=== PATIENT | male | born 1940 | race Caucasian/White ===

== ENCOUNTER 2016-11-28 12:35 | Inpatient (IN) | payer BC, MEDICARE ==
--- NOTE | 2016-11-28 12:56 | ER Document Report ---
ED Medical Screen (RME) - General Chief Complaint: Nausea Stated Complaint: NAUSEA/POSSIBLE PRESSURE ULCER Notes: 76-year-old male patient with diabetes, atrial fibrillation and pacemaker, hypertension. He reports he has been feeling poorly for several days. Family reports she has been having diarrhea for a week frequently in his sleep. He had an INR done yesterday and it was 6, digoxin started 4 weeks ago and on 11/10/2016 that was normal. He went to the office today complaining of discomfort from a bedsore and while there reported pain in throat and nausea so he was sent to the emergency room. Family reports of the office today his rate was controlled for the first time in quite a while since starting the digoxin. There was still a paced rate. I have greeted and performed a rapid initial assessment of this patient. A comprehensive ED assessment and evaluation of the patient, analysis of test results and completion of the medical decision making process will be conducted by additional ED providers. TRAVEL OUTSIDE OF THE [place] IN LAST 30 DAYS: No - Related Data Allergies/Adverse Reactions: iodine [Iodine] Adverse Reaction (Verified 11/28/16 12:43) NAUSEA, VOMITING terazosin HCl [From Hytrin] Adverse Reaction (Verified 11/28/16 12:43) HEART ISSUES (A-FIB) Past Medical History - Past Medical History Cardiac Medical History: Reports: Hx Atrial Fibrillation, Hx Hypertension - AMIORARONE, LETNSIN, HYDRODIURIL, EXFORGE, Denies: Hx Heart Attack Pulmonary Medical History: Denies: Hx Asthma Neurological Medical History: Denies: Hx Cerebrovascular Accident, Hx Seizures Renal/ Medical History: Denies: Hx Peritoneal Dialysis GI Medical History: Reports: Hx Ulcer - STOMACH D/T MED. Denies: Hx Hepatitis, Hx Hiatal Hernia Infectious Medical History: Denies: Hx Hepatitis Past Surgical History: Reports: Hx Bowel Surgery, Hx Pacemaker - CHECKLIST INITIATED, PACEMAKER CHANGED MAR 2011. Denies: Hx Open Heart Surgery Physical Exam - Vital signs Vitals: Temp Pulse Resp BP Pulse Ox 97.5 F 70 13 106/62 94 11/28/16 12:42 11/28/16 12:42 11/28/16 12:42 11/28/16 12:42 11/28/16 12:42 Course - Vital Signs Vital signs: Temp Pulse Resp BP Pulse Ox 97.5 F 70 13 106/62 94 11/28/16 12:42 11/28/16 12:42 11/28/16 12:42 11/28/16 12:42 11/28/16 12:42
[2016-11-28 13:34] LABS: ABSOLUTE EOSINOPHILS # (AUTO) 0.1 10^3/uL (0.0-0.6); ABSOLUTE LYMPHOCYTES (AUTO) 1.1 10^3/uL (0.5-4.7); ABSOLUTE MONOCYTES (AUTO) 0.7 10^3/uL (0.1-1.4); ABSOLUTE NEUT (AUTO) 7.5 10^3/uL (1.7-8.2); BASOPHILS % (AUTO) 0.2 % (0-2); EOSINOPHILS % (AUTO) 1.3 % (0-6); HEMATOCRIT 45.2 % (37.9-51.0); HEMOGLOBIN 15.4 g/dL (13.5-17.0); MEAN CORPUSCULAR HEMOGLOBIN 31.4 pg (27.0-33.4); MEAN CORPUSCULAR VOLUME 92 fl (80-97); MONOCYTES % (AUTO) 7.3 % (3-13); RED CELL DISTRIBUTION WIDTH 15.5 % (11.5-14.0); SEGMENTED NEUTROPHILS % (AUTO) 79.2 % (42-78); WHITE BLOOD COUNT 9.5 10^3/uL (4.0-10.5)
--- NOTE | 2016-11-28 13:55 | ER Document Report ---
ED GI/ <KRISTEN SHAFFER - Last Filed: 11/28/16 14:46> - General Mode of Arrival: Wheelchair Information source: Patient, Relative TRAVEL OUTSIDE OF THE [place] IN LAST 30 DAYS: No - HPI Patient complains to provider of: Other - nausea Associated symptoms: Other - See above <FABRICIOBUCKESTEFANÍA - Last Filed: 11/28/16 14:51> - General Chief Complaint: Nausea Stated Complaint: NAUSEA Notes: Patient is a 76 year old male, with a past medical history including A-fib and DM, who presents to the emergency department with his son and daughter in law complaining of nausea. Per daughter in law, patient had diarrhea during the weekend but became constipated a few days ago, patient was not urinating during the weekend but he has started urinating again, only small amounts and very dark in color. Daughter in law also states patient has a bed sore that developed 2 weeks ago. Patient recently had an INR done, reported at 6, and was told to stop his coumadin, patient developed a nose bleed yesterday. Family also states patient has lost a considerable amount of weight recently, dropped from 270lb to 212lb. Patient complains of vomiting, nausea, and sore throat onset today. 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 Per family, patient had acute kidney failure in the past but since then they have been normal. PCP: Dr. Kothari (ESTEFANÍA REGALADO) - Related Data Allergies/Adverse Reactions: iodine [Iodine] Adverse Reaction (Verified 11/28/16 12:43) NAUSEA, VOMITING terazosin HCl [From Hytrin] Adverse Reaction (Verified 11/28/16 12:43) HEART ISSUES (A-FIB) Past Medical History - General Information source: Patient, Relative - Social History Smoking Status: Unknown if Ever Smoked Family History: Reviewed & Not Pertinent Patient has suicidal ideation: No Patient has homicidal ideation: No - Past Medical History Cardiac Medical History: Reports: Hx Atrial Fibrillation, Hx Hypertension - AMIORARONE, LETNSIN, HYDRODIURIL, EXFORGE, Endocrine Medical History: Reports: Hx Diabetes Mellitus Type 2 GI Medical History: Reports: Hx Ulcer - STOMACH D/T MED Past Surgical History: Reports: Hx Bowel Surgery, Hx Orthopedic Surgery - Hx ATK left, Hx Pacemaker - CHECKLIST INITIATED, PACEMAKER CHANGED MAR 2011 <ESTEFANÍA REGALADO - Last Filed: 11/28/16 14:51> Review of Systems - Review of Systems Constitutional: No symptoms reported EENT: See HPI, Throat pain Cardiovascular: No symptoms reported Respiratory: No symptoms reported Gastrointestinal: See HPI, Diarrhea, Nausea, Vomiting, Constipation, Poor appetite Genitourinary: See HPI, Retention Male Genitourinary: No symptoms reported Musculoskeletal: No symptoms reported Skin: No symptoms reported Hematologic/Lymphatic: No symptoms reported Neurological/Psychological: No symptoms reported -: Yes All other systems reviewed and negative <REGALADOESTEFANÍA - Last Filed: 11/28/16 14:51> Physical Exam <KRISTEN SHAFFER - Last Filed: 11/28/16 14:46> <ESTEFANÍA REGALADO - Last Filed: 11/28/16 14:51> - Vital signs Vitals: Temp Pulse Resp BP Pulse Ox 97.5 F 70 13 106/62 94 11/28/16 12:42 11/28/16 12:42 11/28/16 12:42 11/28/16 12:42 11/28/16 12:42 - Notes Notes: GENERAL: VS as per nursing doc. chronically ill-appearing and in no acute distress. HEAD: Atraumatic, normocephalic. EYES: Pupils equal round and reactive to light, extraocular movements intact, sclera anicteric, no conjunctival injection or discharge. ENT: Nares patent, oropharynx clear without exudates, very dry mucous membranes. NECK: Normal range of motion, supple without lymphadenopathy. LUNGS: Breath sounds clear to auscultation bilaterally and equal with fine basilar crackles. HEART: Regular rate and rhythm without murmurs. ABDOMEN: Soft, non-tender. No guarding, no rebound. No masses appreciated. No [place] sign. BACK: No CVA tenderness. EXTREMITIES: Left BKA noted. No signs of infection at stump Normal range of motion, no calf tenderness, no edema. NEUROLOGICAL: Cranial nerves grossly intact. Normal speech. Normal sensory and motor exams. No gross cerebellar abnormalities. PSYCH: Normal mood, normal affect. Slow recall. SKIN: Warm, dry, right pretibial abrasion noted. (KRISTEN SHAFFER) Course - Laboratory Result Diagrams: 11/28/16 13:20 11/28/16 13:10 - EKG Interpretation by Me Rate: Normal - Rate is 70 with wide complex QRS and 2 paced AV pacemaker dependent. Compared to prior EKG there is bounding and elevation of the ST segments <KRISTEN SHAFFER - Last Filed: 11/28/16 14:46> - Laboratory Result Diagrams: 11/28/16 13:20 11/28/16 13:10 - Consults Dr. De Santiago Time consulted: 14:43 <ESTEFANÍA REGALADO - Last Filed: 11/28/16 14:51> - Re-evaluation Re-evalutation: 11/28/16 14:24 Patient is dig toxic. Urine is pending at this point. He appears to have an acute kidney injury as well with his April 2016 creatinine 1.19 now his GFR is 47 and creatinine 1.76. (KRISTEN SHAFFER) - Vital Signs Vital signs: Temp Pulse Resp BP Pulse Ox 97.5 F 70 13 106/62 94 11/28/16 12:42 11/28/16 12:42 11/28/16 12:42 11/28/16 12:42 11/28/16 12:42 - Laboratory Laboratory results interpreted by me: 11/28/16 11/28/16 11/28/16 13:10 13:10 13:20 RDW 15.5 H Seg Neutrophils % 79.2 H Lymphocytes % 12.0 L PT 58.2 H* INR 6.21 H* Chloride 97 L BUN 47 H Creatinine 1.76 H Est GFR ( Amer) 46 L Est GFR (Non-Af Amer) 38 L Glucose 139 H AST 103 H Alkaline Phosphatase 194 H Albumin 3.2 L Digoxin 2.77 H* - Consults Dr. De Santiago Reason for consultation: 11/28/16 14:43 Dr. De Santiago agrees to admit the patient (ESTEFANÍA REGALADO) Discharge - Discharge Admitting Provider: Hospitalist - Dr. De Santiago Unit Admitted: Telemetry <KRISTEN SHAFFER - Last Filed: 11/28/16 14:46> <ESTEFANÍA REGALADO - Last Filed: 11/28/16 14:51> - Discharge Clinical Impression: Digoxin toxicity, Coumadin toxicity Condition: Fair Scribe Documentation - Scribe Written by Scribe:: roselia Gan, 11/28/16, 1413 acting as scribe for :: Keyonna <ESTEFANÍA REGALADO - Last Filed: 11/28/16 14:51>
[2016-11-28 13:57] LABS: ALANINE AMINOTRANSFERASE 54 U/L (21-72); ALBUMIN 3.2 g/dL (3.5-5.0); ALKALINE PHOSPHATASE 194 U/L (38-126); ANION GAP 12 (5-19); ASPARTATE AMINO TRANSFERASE 103 U/L (17-59); BILIRUBIN,DIRECT 0.3 mg/dL (0.0-0.4); BILIRUBIN,TOTAL 0.9 mg/dL (0.2-1.3); BLOOD UREA NITROGEN 47 mg/dL (7-20); CALCIUM 9.4 mg/dL (8.4-10.2); CARBON DIOXIDE 30 mmol/L (22-30); CHLORIDE 97 mmol/L (98-107); CREATININE RESULT 1.76 mg/dL (0.52-1.25); GLUCOSE 139 mg/dL (75-110); MAGNESIUM 1.7 mg/dL (1.6-2.3); POTASSIUM 4.7 mmol/L (3.6-5.0); SODIUM 139.2 mmol/L (137-145); TOTAL PROTEIN 7.4 g/dL (6.3-8.2)
[2016-11-28 14:12] LABS: DIGOXIN 2.77 ng/mL (0.8-2.0)
[2016-11-28] MEDS ORDERED: DIGOXIN IMMUNE FAB 40 MG IV ONE (14:29)
[2016-11-28 14:34] LABS: PROTHROMBIN TIME 58.2 SEC (11.4-15.4)
[2016-11-28] MEDS ORDERED: ACETAMINOPHEN 325 MG TABLET PO PRN (16:11)
[2016-11-28] MEDS ORDERED: ONDANSETRON HCL INJ/PF 4 MG/2 ML SDV IV PRN (16:20)
[2016-11-28] MEDS ORDERED: GLUCAGON,HUMAN RECOMB 1 MG INJ IM PRN (16:23)
[2016-11-28] MEDS ORDERED: DEXTROSE 40% GEL 15 GM TUBE PO PRN ×2 (16:23)
[2016-11-28] MEDS ORDERED: DEXTROSE 50%-WATER 25 GM/50 ML DISP.SYRIN IV PRN ×2 (16:23)
[2016-11-28 17:25] LABS: THYROID STIMULATING HORMONE 0.47 uIU/mL (0.47-4.68)
--- NOTE | 2016-11-28 17:35 | PDOC H&P ---
History of Present Illness Admission Date/PCP: 11/28/16 16:19 MARION HAAS MD Patient complains of: Diarrhea History of Present Illness: HOANG HUMPHREYS is a 76 year old male, with multiple medical problems including diabetes, atrial fibrillation, coronary artery disease, hypertension, peripheral vascular disease, brought to the emergency room because of confusion and decreased oral intake for the past 2 weeks. The patient underwent amputation of the lower extremity on September of this year. Went to rehabilitation for about a month without significant improvement therefore was discharged home with physical therapy. The patient was discharged from physical therapy as there is no progress as well in terms of ambulation. Patient reportedly on 24-hour care according to the family. His lives with his son. He is unable to get out of bed and transfer to the wheelchair. He has a decubitus ulcer on his buttocks that reportedly started to increase in size. For the past 2 weeks his appetite has dropped. He started to become confused as well. Patient just recently completed antibiotic therapy for a urinary tract infection with cephalexin. He started to develop diarrhea about a week ago but not in large volume. He had prior constipation according to the family. He has not however complain of any problems specifically. Imodium was given to the patient, which will only relieved the symptom partially but the diarrhea persisted. He started to develop some nausea with episode of vomiting. He was brought to the hospital for evaluation, in the emergency room he was found to have an elevated digoxin level, as well as creatinine, and PT/ INR. Patient was given Digibind, and was referred for admission. EKG shows intraventricular conduction defect but patient has a permanent pacemaker. No other information available at this time. Information about unobtainable from the patient as he is a very poor historian. Past Medical History Cardiac Medical History: Reports: Atrial Fibrillation, Coronary Artery Disease, Hyperlipidema, Hypertension, Peripheral Vascular Disease Denies: Myocardial Infarction Pulmonary Medical History: Denies: Asthma Neurological Medical History: Denies: Seizures Endocrine Medical History: Reports: Diabetes Mellitus Type 2 Renal/ Medical History: Reports: Other - BPH GI Medical History: Reports: Other - Peptic ulcer disease Denies: Hepatitis, Hiatal Hernia Hematology: Reports: Anemia Denies: Sickle Cell Disease Past Surgical History Past Surgical History: Reports: Orthopedic Surgery - Hx AKA left, Pacemaker - CHECKLIST INITIATED, PACEMAKER CHANGED MAR 2011 Social History Information Source: Relative - Son Smoking Status: Former Smoker Frequency of Alcohol Use: None Hx Recreational Drug Use: No Drugs: None Hx Prescription Drug Abuse: No Family History Family History: DM, Hypertension Parental Family History Reviewed: Yes Children Family History Reviewed: Yes Sibling(s) Family History Reviewed.: Yes Medication/Allergy Home Medications: Amiodarone HCl [Cordarone 200 mg Tablet] 200 mg PO DAILY 11/28/16 Ascorbate Calcium [Vitamin C] 500 mg PO DAILY 11/28/16 Aspirin [Adult Low Dose Aspirin EC] 81 mg PO DAILY 11/28/16 Atorvastatin Calcium [Lipitor 40 mg Tablet] 40 mg PO QHS 11/28/16 Bupropion HCl [Wellbutrin Xl 300mg 24hr Tablet] 300 mg PO DAILY 11/28/16 Cetirizine HCl [Zyrtec 10 mg Tablet] 1 tab PO QHS 11/28/16 Ferrous Sulfate [Feosol 325 mg Tablet] 325 mg PO BID 11/28/16 Gabapentin [Neurontin 300 mg Capsule] 300 mg PO Q8 11/28/16 Insulin Detemir [Levemir Flextouch] 10 unit SQ QHS 11/28/16 Insulin Lispro [Humalog Insulin 100 Unit/1 ml 3 ml Vial] 4 unit SUBCUT MEALS Metoprolol Succinate [Toprol XL 200 mg Tablet] 300 mg PO DAILY 11/28/16 Multivitamin [Daily Multiple Vitamin] 1 each PO DAILY 11/28/16 Sertraline HCl [Zoloft] 25 mg PO DAILY 11/28/16 Spironolactone [Aldactone 25 mg Tablet] 25 mg PO DAILY 11/28/16 Torsemide [Demadex 20 mg Tablet] 20 mg PO DAILY 11/28/16 Warfarin Sodium [Coumadin 1 mg Tablet] 1 mg PO DAILY@1700 11/28/16 Allergies/Adverse Reactions: iodine [Iodine] Adverse Reaction (Verified 11/28/16 12:43) NAUSEA, VOMITING terazosin HCl [From Hytrin] Adverse Reaction (Verified 11/28/16 12:43) HEART ISSUES (A-FIB) Review of Systems ROS unobtainable: Due to mental status - information provided by the son at bedside Constitutional: PRESENT: weight loss - 50 pounds in the last 2 weeks. ABSENT: fever(s) Nose, Mouth, and Throat: PRESENT: sore throat - For about 1 week Respiratory: PRESENT: cough - Occasional. ABSENT: dyspnea Gastrointestinal: PRESENT: constipation. ABSENT: abdominal pain, coffee ground emesis, hematochezia, melena Neurological: PRESENT: weakness - Generalized, other - Bedbound and unable to get up in bed and go to chair Physical Exam Vital Signs: Temp Pulse Resp BP Pulse Ox 97.5 F 70 17 107/64 95 11/28/16 12:42 11/28/16 12:42 11/28/16 16:30 11/28/16 16:30 11/28/16 16:30 General appearance: PRESENT: no acute distress, disheveled, obese Head exam: PRESENT: normocephalic Eye exam: PRESENT: conjunctiva pale, EOMI, PERRLA - Sluggish bilateral Ear exam: PRESENT: normal external ear exam. ABSENT: drainage Mouth exam: PRESENT: dry mucosa, neck supple, tongue midline Teeth exam: PRESENT: poor dentation Throat exam: ABSENT: post pharyngeal erythema, tonsillar erythema Neck exam: ABSENT: carotid bruit, JVD, thyromegaly Respiratory exam: PRESENT: clear to auscultation mayra, unlabored, other - Poor effort. ABSENT: rales, rhonchi, wheezes Cardiovascular exam: PRESENT: RRR, +S1, +S2. ABSENT: diastolic murmur, gallop, rubs, systolic murmur Pulses: PRESENT: normal dorsalis pedis pul Vascular exam: PRESENT: normal capillary refill GI/Abdominal exam: PRESENT: hypoactive bowel sounds, soft, other - Dullness to percussion. ABSENT: distended - Obese, guarding, mass, organolmegaly, rebound, tenderness Rectal exam: PRESENT: deferred Extremities exam: PRESENT: full ROM, other - Trace edema on the right leg, above knee amputation of the left. ABSENT: calf tenderness, clubbing Neurological exam: PRESENT: alert, awake, oriented to person, oriented to situation, other - Confused. ABSENT: oriented to place, oriented to time Psychiatric exam: PRESENT: flat affect. ABSENT: agitated Focused psych exam: ABSENT: restlessness Skin exam: PRESENT: dry, rash - Right leg with excoriation, warm, other - Stage II decubitus on the right buttocks present on admission. ABSENT: cyanosis Results Impressions: Chest X-Ray 11/28/16 14:25 IMPRESSION: No acute cardiopulmonary disease. Cardiac size is stable without significant pulmonary vascular distention. Assessment & Plan - Diagnosis (1) Digoxin toxicity Qualifiers: Encounter type: initial encounter Injury intent: accidental or unintentional Qualified Code(s): T46.0X1A - Poisoning by cardiac- stimulant glycosides and drugs of similar action, accidental (unintentional), initial encounter Is this a current diagnosis for this admission?: Yes (2) Coumadin toxicity Qualifiers: Encounter type: initial encounter Injury intent: accidental or unintentional Qualified Code(s): T45.511A - Poisoning by anticoagulants, accidental (unintentional), initial encounter Is this a current diagnosis for this admission?: Yes (3) Acute renal failure Qualifiers: Acute renal failure type: unspecified Qualified Code(s): N17.9 - Acute kidney failure, unspecified Is this a current diagnosis for this admission?: Yes (4) Dehydration Is this a current diagnosis for this admission?: Yes (5) Diarrhea Qualifiers: Diarrhea type: unspecified type Qualified Code(s): R19.7 - Diarrhea , unspecified Is this a current diagnosis for this admission?: Yes (6) Abnormal liver function test Is this a current diagnosis for this admission?: Yes (7) Fungal infection of skin of abdomen Is this a current diagnosis for this admission?: Yes (8) Type I diabetes mellitus Qualifiers: Diabetes mellitus complication status: with circulatory complication Diabetes mellitus complication detail: with other circulatory complications Qualified Code(s): E10.59 - Type 1 diabetes mellitus with other circulatory complications Is this a current diagnosis for this admission?: Yes (9) Chronic atrial fibrillation Is this a current diagnosis for this admission?: Yes (10) Hyperlipidemia Qualifiers: Hyperlipidemia type: unspecified Qualified Code(s): E78.5 - Hyperlipidemia, unspecified Is this a current diagnosis for this admission?: Yes (11) Essential hypertension Is this a current diagnosis for this admission?: Yes (12) Peptic ulcer disease Is this a current diagnosis for this admission?: Yes (13) Peripheral vascular disease Is this a current diagnosis for this admission?: Yes (14) Coronary artery disease Qualifiers: Coronary Disease-Associated Artery/Lesion type: [place] artery [place] vs. transplanted heart: [place] heart Associated angina: without angina Qualified Code(s): I25.10 - Atherosclerotic heart disease of [place] coronary artery without angina pectoris Is this a current diagnosis for this admission?: Yes (15) BPH (benign prostatic hyperplasia) Qualifiers: Prostatic enlargement morphology: unspecified morphology Lower urinary tract symptom presence: presence of symptoms unspecified Qualified Code(s ): N40.0 - Benign prostatic hyperplasia without lower urinary tract symptoms Is this a current diagnosis for this admission?: Yes (16) Anemia of chronic disease Is this a current diagnosis for this admission?: Yes (17) Stage II decubitus ulcer Qualifiers: Pressure ulcer location: buttock Is this a current diagnosis for this admission?: Yes - Time Time Spent: 50 to 70 Minutes - Inpatient Certification Based on my medical assessment, after consideration of the patient's comorbidities, presenting symptoms, or acuity I expect that the services needed warrant INPATIENT care.: Yes I certify that my determination is in accordance with my understanding of Medicare's requirements for reasonable and necessary INPATIENT services [42 CFR 412.3e].: Yes Medical Necessity: Significant Comorbidiites Make Outpatient Treatment Too Risky , Need Close Monitoring Due to Risk of Patient Decompensation, Need For IV Fluids, Risk of Complication if Not Cared For in Hospital Post Hospital Care: D/C Critical Power Technician Documentation - Plan Summary Plan Summary: We will admit the patient to telemetry. We will gently hydrate the patient with normal saline. Digibind given in the emergency room. We will recheck digoxin level in the morning. In the meantime I will hold the patient's cholesterol medication due to abnormal liver function test. I will hold the warfarin and monitor PT/INR. We will likewise monitor hematocrit and transfuse if needed. Patient recently took antibiotics for a urine infection, with cephalexin, we will check stool for Clostridium difficile toxin, begin Flagyl and lactobacillus. We will check a KUB for impaction as well. I will hold the patient's diuretic and monitor creatinine. Antifungal and local antibiotic for his skin infection of the skin folds and groin. Decubiti care and precautions. I will hold the patient's insulin for now and just put him on sliding scale until oral intake improves . Consult environmental planner for long-term care.
[2016-11-28] MEDS: BACITRACIN ZINC OINTMENT 15 GM TP SCH (19:32)
[2016-11-28] MEDS: CLOTRIMAZOLE/BETAMETHASONE DIP CREAM 15 GM TOP SCH (19:32)
[2016-11-28] MEDS: METRONIDAZOLE 500 MG TABLET PO SCH (19:41)
[2016-11-28] MEDS: LACTOBACILLUS ACIDOPHILUS 250 MG TAB PO SCH (19:42)
[2016-11-28] MEDS: LANSOPRAZOLE 30 MG TAB.RAP.DR PO SCH (19:42)
[2016-11-28] MEDS ORDERED: NORMAL SALINE 1000 ML 500 ML IV ONE (21:22)
--- NOTE | 2016-11-28 21:56 | EKG REPORT ---
SEVERITY:- ABNORMAL ECG - ATRIAL-VENTRICULAR DUAL-PACED RHYTHM : Confirmed by: Nora Main MD 28-Nov-2016 21:55:42
[2016-11-28] MEDS ORDERED: ATORVASTATIN CALCIUM 40 MG TABLET PO SCH (22:00)
[2016-11-28 22:10] LABS: APPEARANCE,URINE SLIGHTLY-CLOUDY; BILIRUBIN,URINE NEGATIVE (NEGATIVE); GLUCOSE, URINE NEGATIVE (NEGATIVE); KETONES,URINE NEGATIVE (NEGATIVE); LEUKOCYTE ESTERASE,URINE SMALL (NEGATIVE); NITRITE,URINE POSITIVE (NEGATIVE); PROTEIN,URINE NEGATIVE (NEGATIVE); URINE SPECIFIC GRAVITY 1.008; UROBILINOGEN,URINE NEGATIVE mg/dL (<2.0)
[2016-11-29] MEDS: GABAPENTIN 300 MG CAPSULE PO SCH ×4 (00:47→21:21)
[2016-11-29] MEDS: BUPROPION HCL 100 MG TABLET PO SCH ×4 (00:47→21:21)
[2016-11-29] MEDS: METRONIDAZOLE 500 MG TABLET PO SCH ×4 (01:33→17:14)
[2016-11-29 05:22] LABS: MEAN CORPUSCULAR VOLUME 93 fl (80-97)
[2016-11-29 05:27] LABS: HEMATOCRIT 39.9 % (37.9-51.0); HGB HCT DIFFERENCE 0.3; MEAN CORPUSCULAR HEMOGLOBIN 30.9 pg (27.0-33.4); MEAN CORPUSCULAR HGB CONC 33.4 g/dL (32.0-36.0); RED BLOOD COUNT 4.32 10^6/uL (4.35-5.55); RED CELL DISTRIBUTION WIDTH 15.5 % (11.5-14.0); WHITE BLOOD COUNT 6.3 10^3/uL (4.0-10.5)
[2016-11-29 05:28] LABS: HEMOGLOBIN 13.4 g/dL (13.5-17.0)
[2016-11-29 05:41] LABS: PROTHROMBIN TIME 61.1 SEC (11.4-15.4)
[2016-11-29 05:54] LABS: ANION GAP 12 (5-19); BLOOD UREA NITROGEN 49 mg/dL (7-20); CALCIUM 8.9 mg/dL (8.4-10.2); CARBON DIOXIDE 30 mmol/L (22-30); CHLORIDE 100 mmol/L (98-107); CREATININE RESULT 1.68 mg/dL (0.52-1.25); GLUCOSE 85 mg/dL (75-110); POTASSIUM 3.9 mmol/L (3.6-5.0); SODIUM 141.9 mmol/L (137-145)
[2016-11-29] MEDS: LANSOPRAZOLE 30 MG TAB.RAP.DR PO SCH ×2 (06:44→17:14)
[2016-11-29 06:47] LABS: DIGOXIN 3.27 ng/mL (0.8-2.0)
[2016-11-29] MEDS ORDERED: (PENDING PHARMACY ID) (Ascorbate Calcium [Vitamin C] 500 MG) PO SCH (10:00)
[2016-11-29] MEDS: LACTOBACILLUS ACIDOPHILUS 250 MG TAB PO SCH ×2 (10:36→17:14)
[2016-11-29] MEDS: ASCORBIC ACID 500 MG TABLET PO SCH (10:36)
[2016-11-29] MEDS: AMIODARONE HCL 200 MG TABLET PO SCH (10:37)
[2016-11-29] MEDS: ASPIRIN 81 MG TABLET, ENT COATED PO SCH (10:37)
[2016-11-29] MEDS: BACITRACIN ZINC OINTMENT 15 GM TP SCH ×2 (10:37→17:15)
[2016-11-29] MEDS: CLOTRIMAZOLE/BETAMETHASONE DIP CREAM 15 GM TOP SCH ×2 (10:38→17:15)
[2016-11-29] MEDS: INSULIN REG, HUMAN 100 UNIT/ML 3 ML VIAL (PYX) SUBCUT PRN (11:38)
[2016-11-29] MEDS ORDERED: PHYTONADIONE INJ 10 MG/1 ML AMPULE SUBCUT ONE (14:11)
[2016-11-29] MEDS ORDERED: ERTAPENEM SODIUM INJ 1 GM VIAL IV SCH (14:15)
--- NOTE | 2016-11-29 14:19 | PDOC PROGRESS REPORT ---
Subjective Progress Note for:: 11/29/16 Subjective:: Patient is feeling better this morning. He denies any diarrhea at all. There is no nausea or vomiting. No chills or fever. Patient still have intermittent confusion as staff reports. No respiratory distress nor temperature spikes. Physical Exam Vital Signs: Temp Pulse Resp BP Pulse Ox 97.4 F 70 12 107/50 L 98 11/29/16 08:35 11/29/16 08:35 11/29/16 08:35 11/29/16 08:35 11/29/16 08:35 Intake & Output 11/28/16 11/29/16 11/30/16 06:59 06:59 06:59 Intake Total 1700 Output Total 1330 Balance 370 Weight 101.8 kg General appearance: PRESENT: no acute distress, obese Head exam: PRESENT: normocephalic Eye exam: PRESENT: EOMI Mouth exam: PRESENT: moist, neck supple Neck exam: ABSENT: JVD Respiratory exam: PRESENT: clear to auscultation mayra - Anteriorly. ABSENT: rales, wheezes Cardiovascular exam: PRESENT: RRR. ABSENT: gallop GI/Abdominal exam: PRESENT: hypoactive bowel sounds, soft. 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 ABSENT: cyanosis Results Laboratory Results: 11/29/16 04:30 11/29/16 04:30 11/28/16 11/28/16 11/28/16 16:41 18:49 21:50 WBC RBC Hgb Hct MCV MCH MCHC RDW Plt Count Sodium Potassium Chloride Carbon Dioxide Anion Gap BUN Creatinine Est GFR ( Amer) Est GFR (Non-Af Amer) Glucose Lactic Acid 2.3 H Calcium TSH 0.47 Free T4 3.67 H Urine Color YELLOW Urine Appearance SLIGHTLY-CLOUDY Urine pH 5.0 Ur Specific Plush 1.008 Urine Protein NEGATIVE Urine Glucose (UA) NEGATIVE Urine Ketones NEGATIVE Urine Blood NEGATIVE Urine Nitrite POSITIVE H Ur Leukocyte Esterase SMALL H Urine WBC (Auto) 8 Urine RBC (Auto) 2 11/29/16 11/29/16 04:30 04:30 WBC 6.3 RBC 4.32 L Hgb 13.4 L Hct 39.9 MCV 93 MCH 30.9 MCHC 33.4 RDW 15.5 H Plt Count 113 L Sodium 141.9 Potassium 3.9 Chloride 100 Carbon Dioxide 30 Anion Gap 12 BUN 49 H Creatinine 1.68 H Est GFR ( Amer) 49 L Est GFR (Non-Af Amer) 40 L Glucose 85 Lactic Acid Calcium 8.9 TSH Free T4 Urine Color Urine Appearance Urine pH Ur Specific Plush Urine Protein Urine Glucose (UA) Urine Ketones Urine Blood Urine Nitrite Ur Leukocyte Esterase Urine WBC (Auto) Urine RBC (Auto) Impressions: KUB X-Ray 11/28/16 00:00 IMPRESSION: Nonspecific bowel gas pattern with moderate stool in the ascending colon, transverse colon, and rectosigmoid. Chest X-Ray 11/28/16 14:25 IMPRESSION: No acute cardiopulmonary disease. Cardiac size is stable without significant pulmonary vascular distention. Assessment & Plan - Diagnosis (1) Digoxin toxicity Qualifiers: Encounter type: initial encounter Injury intent: accidental or unintentional Qualified Code(s): T46.0X1A - Poisoning by cardiac- stimulant glycosides and drugs of similar action, accidental (unintentional), initial encounter Is this a current diagnosis for this admission?: Yes (2) Coumadin toxicity Qualifiers: Encounter type: initial encounter Injury intent: accidental or unintentional Qualified Code(s): T45.511A - Poisoning by anticoagulants, accidental (unintentional), initial encounter Is this a current diagnosis for this admission?: Yes (3) Acute renal failure Qualifiers: Acute renal failure type: unspecified Qualified Code(s): N17.9 - Acute kidney failure, unspecified Is this a current diagnosis for this admission?: Yes (4) Dehydration Is this a current diagnosis for this admission?: Yes (5) Diarrhea Qualifiers: Diarrhea type: unspecified type Qualified Code(s): R19.7 - Diarrhea , unspecified Is this a current diagnosis for this admission?: Yes (6) Abnormal liver function test Is this a current diagnosis for this admission?: Yes (7) Fungal infection of skin of abdomen Is this a current diagnosis for this admission?: Yes (8) Type I diabetes mellitus Qualifiers: Diabetes mellitus complication status: with circulatory complication Diabetes mellitus complication detail: with other circulatory complications Qualified Code(s): E10.59 - Type 1 diabetes mellitus with other circulatory complications Is this a current diagnosis for this admission?: Yes (9) Chronic atrial fibrillation Is this a current diagnosis for this admission?: Yes (10) Hyperlipidemia Qualifiers: Hyperlipidemia type: unspecified Qualified Code(s): E78.5 - Hyperlipidemia, unspecified Is this a current diagnosis for this admission?: Yes (11) Essential hypertension Is this a current diagnosis for this admission?: Yes (12) Peptic ulcer disease Is this a current diagnosis for this admission?: Yes (13) Peripheral vascular disease Is this a current diagnosis for this admission?: Yes (14) Coronary artery disease Qualifiers: Coronary Disease-Associated Artery/Lesion type: [place] artery [place] vs. transplanted heart: [place] heart Associated angina: without angina Qualified Code(s): I25.10 - Atherosclerotic heart disease of [place] coronary artery without angina pectoris Is this a current diagnosis for this admission?: Yes (15) BPH (benign prostatic hyperplasia) Qualifiers: Prostatic enlargement morphology: unspecified morphology Lower urinary tract symptom presence: presence of symptoms unspecified Qualified Code(s ): N40.0 - Benign prostatic hyperplasia without lower urinary tract symptoms Is this a current diagnosis for this admission?: Yes (16) Anemia of chronic disease Is this a current diagnosis for this admission?: Yes (17) Stage II decubitus ulcer Qualifiers: Pressure ulcer location: buttock Laterality: left Qualified Code (s): L89.322 - Pressure ulcer of left buttock, stage 2 Is this a current diagnosis for this admission?: Yes - Time Time Spent with patient: 25-34 minutes - Plan Summary Plan Summary: Continue gentle hydration. Begin intravenous antibiotics with Invanz. Failed outpatient therapy/treatment of urinary tract infection. Awaiting cultures. Continue supportive care. Continue to monitor creatinine. We will give a dose of vitamin K and recheck PT/INR in the morning. Continue to hold warfarin. Recheck digoxin level in a.m.
[2016-11-29] MEDS: POLYETHYLENE GLYCOL 3350 POWDER 17 GM/1 PACKET PO SCH (17:15)
[2016-11-29] MEDS: ERTAPENEM SODIUM 1 GM in NORMAL SALINE 50 ML IV SCH (17:15)
[2016-11-30] MEDS: METRONIDAZOLE 500 MG TABLET PO SCH ×2 (00:09→06:22)
[2016-11-30 06:18] LABS: PROTHROMBIN TIME 48.2 SEC (11.4-15.4)
[2016-11-30] MEDS: GABAPENTIN 300 MG CAPSULE PO SCH ×3 (06:21→21:16)
[2016-11-30] MEDS: BUPROPION HCL 100 MG TABLET PO SCH ×3 (06:22→21:16)
[2016-11-30] MEDS: LANSOPRAZOLE 30 MG TAB.RAP.DR PO SCH ×2 (06:22→17:09)
[2016-11-30 06:29] LABS: ANION GAP 12 (5-19); BLOOD UREA NITROGEN 42 mg/dL (7-20); CALCIUM 8.8 mg/dL (8.4-10.2); CARBON DIOXIDE 27 mmol/L (22-30); CHLORIDE 104 mmol/L (98-107); CREATININE RESULT 1.31 mg/dL (0.52-1.25); DIGOXIN 1.82 ng/mL (0.8-2.0); GLUCOSE 89 mg/dL (75-110); POTASSIUM 4.1 mmol/L (3.6-5.0); SODIUM 142.9 mmol/L (137-145)
[2016-11-30] MEDS: ASPIRIN 81 MG TABLET, ENT COATED PO SCH (09:06)
[2016-11-30] MEDS: AMIODARONE HCL 200 MG TABLET PO SCH (09:07)
[2016-11-30] MEDS: LACTOBACILLUS ACIDOPHILUS 250 MG TAB PO SCH ×2 (09:07→17:09)
[2016-11-30] MEDS: ASCORBIC ACID 500 MG TABLET PO SCH (09:07)
[2016-11-30] MEDS: CLOTRIMAZOLE/BETAMETHASONE DIP CREAM 15 GM TOP SCH ×2 (09:07→17:09)
[2016-11-30] MEDS: BACITRACIN ZINC OINTMENT 15 GM TP SCH ×2 (09:07→17:09)
--- NOTE | 2016-11-30 10:39 | PDOC PROGRESS REPORT ---
Subjective Progress Note for:: 11/30/16 Subjective:: Patient would've bouts of confusion, especially at night, but overall improved. Patient able to engage in conversation. No reported temperature spikes, nausea or vomiting, diarrhea. No reported respiratory distress, nor bleeding. Physical Exam Vital Signs: Temp Pulse Resp BP Pulse Ox 97.6 F 72 17 99/40 L 96 11/30/16 07:24 11/30/16 07:24 11/30/16 07:24 11/30/16 08:16 11/30/16 07:24 Intake & Output 11/29/16 11/30/16 12/01/16 06:59 06:59 06:59 Intake Total 1700 3054 Output Total 1330 3 Balance 370 3051 Weight 101.8 kg 108.2 kg General appearance: PRESENT: no acute distress, cooperative, obese Head exam: PRESENT: normocephalic Eye exam: PRESENT: EOMI Mouth exam: PRESENT: moist, neck supple Neck exam: ABSENT: JVD Respiratory exam: PRESENT: clear to auscultation mayra. ABSENT: rhonchi, wheezes Cardiovascular exam: PRESENT: RRR. ABSENT: gallop GI/Abdominal exam: PRESENT: hypoactive bowel sounds, soft. ABSENT: tenderness Extremities exam: PRESENT: other - Trace pretibial edema on the right, above knee amputation on the left Neurological exam: PRESENT: alert, awake Skin exam: PRESENT: dry, warm. ABSENT: cyanosis Results Laboratory Results: 11/29/16 04:30 11/30/16 04:44 11/30/16 04:44 Sodium 142.9 Potassium 4.1 Chloride 104 Carbon Dioxide 27 Anion Gap 12 BUN 42 H Creatinine 1.31 H Est GFR ( Amer) > 60 Est GFR (Non-Af Amer) 53 L Glucose 89 Calcium 8.8 Impressions: KUB X-Ray 11/28/16 00:00 IMPRESSION: Nonspecific bowel gas pattern with moderate stool in the ascending colon, transverse colon, and rectosigmoid. Chest X-Ray 11/28/16 14:25 IMPRESSION: No acute cardiopulmonary disease. Cardiac size is stable without significant pulmonary vascular distention. Assessment & Plan - Diagnosis (1) Digoxin toxicity Qualifiers: Encounter type: initial encounter Injury intent: accidental or unintentional Qualified Code(s): T46.0X1A - Poisoning by cardiac- stimulant glycosides and drugs of similar action, accidental (unintentional), initial encounter Is this a current diagnosis for this admission?: Yes (2) Coumadin toxicity Qualifiers: Encounter type: initial encounter Injury intent: accidental or unintentional Qualified Code(s): T45.511A - Poisoning by anticoagulants, accidental (unintentional), initial encounter Is this a current diagnosis for this admission?: Yes (3) Acute renal failure Qualifiers: Acute renal failure type: unspecified Qualified Code(s): N17.9 - Acute kidney failure, unspecified Is this a current diagnosis for this admission?: Yes (4) Dehydration Is this a current diagnosis for this admission?: Yes (5) Diarrhea Qualifiers: Diarrhea type: unspecified type Qualified Code(s): R19.7 - Diarrhea , unspecified Is this a current diagnosis for this admission?: Yes (6) Abnormal liver function test Is this a current diagnosis for this admission?: Yes (7) Fungal infection of skin of abdomen Is this a current diagnosis for this admission?: Yes (8) Type I diabetes mellitus Qualifiers: Diabetes mellitus complication status: with circulatory complication Diabetes mellitus complication detail: with other circulatory complications Qualified Code(s): E10.59 - Type 1 diabetes mellitus with other circulatory complications Is this a current diagnosis for this admission?: Yes (9) Chronic atrial fibrillation Is this a current diagnosis for this admission?: Yes (10) Hyperlipidemia Qualifiers: Hyperlipidemia type: unspecified Qualified Code(s): E78.5 - Hyperlipidemia, unspecified Is this a current diagnosis for this admission?: Yes (11) Essential hypertension Is this a current diagnosis for this admission?: Yes (12) Peptic ulcer disease Is this a current diagnosis for this admission?: Yes (13) Peripheral vascular disease Is this a current diagnosis for this admission?: Yes (14) Coronary artery disease Qualifiers: Coronary Disease-Associated Artery/Lesion type: [place] artery [place] vs. transplanted heart: [place] heart Associated angina: without angina Qualified Code(s): I25.10 - Atherosclerotic heart disease of [place] coronary artery without angina pectoris Is this a current diagnosis for this admission?: Yes (15) BPH (benign prostatic hyperplasia) Qualifiers: Prostatic enlargement morphology: unspecified morphology Lower urinary tract symptom presence: presence of symptoms unspecified Qualified Code(s ): N40.0 - Benign prostatic hyperplasia without lower urinary tract symptoms Is this a current diagnosis for this admission?: Yes (16) Anemia of chronic disease Is this a current diagnosis for this admission?: Yes (17) Stage II decubitus ulcer Qualifiers: Pressure ulcer location: buttock Laterality: left Qualified Code (s): L89.322 - Pressure ulcer of left buttock, stage 2 Is this a current diagnosis for this admission?: Yes - Time Time Spent with patient: 25-34 minutes - Plan Summary Plan Summary: Patient off dig toxicity now. We will continue to hold digoxin. In the meantime continue antibiotics and follow cultures. Continue to hold warfarin. Give vitamin K now and recheck PT/INR in the morning. Creatinine continues to improve and we will continue to follow. Continue gentle hydration. No reported diarrhea, patient denies diarrhea. We will discontinue Flagyl.
[2016-11-30] MEDS ORDERED: PHYTONADIONE INJ 10 MG/1 ML AMPULE SUBCUT ONE (12:00)
[2016-11-30] MEDS: NORMAL SALINE 1000 ML 1,000 ML IV PRN (12:45)
[2016-11-30] MEDS: INSULIN REG, HUMAN 100 UNIT/ML 3 ML VIAL (PYX) SUBCUT PRN (17:09)
[2016-11-30] MEDS: POLYETHYLENE GLYCOL 3350 POWDER 17 GM/1 PACKET PO SCH (17:09)
[2016-11-30] MEDS: ERTAPENEM SODIUM 1 GM in NORMAL SALINE 50 ML IV SCH (17:09)
[2016-12-01] MEDS: GABAPENTIN 300 MG CAPSULE PO SCH ×3 (05:34→22:29)
[2016-12-01] MEDS: LANSOPRAZOLE 30 MG TAB.RAP.DR PO SCH ×2 (05:34→18:03)
[2016-12-01] MEDS: BUPROPION HCL 100 MG TABLET PO SCH ×3 (05:34→22:29)
[2016-12-01 06:08] LABS: PROTHROMBIN TIME 27.9 SEC (11.4-15.4)
[2016-12-01 06:30] LABS: ANION GAP 11 (5-19); BLOOD UREA NITROGEN 30 mg/dL (7-20); CARBON DIOXIDE 29 mmol/L (22-30); CHLORIDE 106 mmol/L (98-107); CREATININE RESULT 1.06 mg/dL (0.52-1.25); GLUCOSE 82 mg/dL (75-110); SODIUM 145.8 mmol/L (137-145)
--- NOTE | 2016-12-01 09:31 | PDOC PROGRESS REPORT ---
Subjective Progress Note for:: 12/01/16 Subjective:: More awake and alert and responsive this morning. Denies any chest pain or shortness of breath, no nausea or vomiting. Denies having any diarrhea. Staff reports stool leaking but no diarrhea. No temperature spikes or respiratory distress reported. Tolerating oral intake well. Physical Exam Vital Signs: Temp Pulse Resp BP Pulse Ox 97.4 F 69 16 140/62 H 100 12/01/16 07:20 12/01/16 07:20 12/01/16 07:20 12/01/16 07:20 12/01/16 07:20 Intake & Output 11/30/16 12/01/16 12/02/16 06:59 06:59 06:59 Intake Total 3054 3232 Output Total 3 1100 Balance 3051 2132 Weight 108.2 kg 108.2 kg General appearance: PRESENT: no acute distress, cooperative, obese Head exam: PRESENT: normocephalic Eye exam: PRESENT: EOMI Mouth exam: PRESENT: moist, neck supple Neck exam: ABSENT: JVD Respiratory exam: PRESENT: clear to auscultation mayra. ABSENT: rhonchi, wheezes Cardiovascular exam: PRESENT: RRR. ABSENT: gallop GI/Abdominal exam: PRESENT: hypoactive bowel sounds, soft, other - No purulent drainage on the intertriginous area, and groin. ABSENT: tenderness Extremities exam: PRESENT: other - Trace pretibial edema on the right, above knee amputation on the left Neurological exam: PRESENT: alert, awake Psychiatric exam: ABSENT: agitated Focused psych exam: ABSENT: restlessness Skin exam: PRESENT: dry, warm. ABSENT: cyanosis Results Laboratory Results: 11/29/16 04:30 12/01/16 05:34 12/01/16 05:34 Sodium 145.8 H Potassium 4.0 Chloride 106 Carbon Dioxide 29 Anion Gap 11 BUN 30 H Creatinine 1.06 Est GFR ( Amer) > 60 Est GFR (Non-Af Amer) > 60 Glucose 82 Calcium 9.0 Impressions: KUB X-Ray 11/28/16 00:00 IMPRESSION: Nonspecific bowel gas pattern with moderate stool in the ascending colon, transverse colon, and rectosigmoid. Chest X-Ray 11/28/16 14:25 IMPRESSION: No acute cardiopulmonary disease. Cardiac size is stable without significant pulmonary vascular distention. Assessment & Plan - Diagnosis (1) Digoxin toxicity Qualifiers: Encounter type: initial encounter Injury intent: accidental or unintentional Qualified Code(s): T46.0X1A - Poisoning by cardiac- stimulant glycosides and drugs of similar action, accidental (unintentional), initial encounter Is this a current diagnosis for this admission?: Yes (2) Coumadin toxicity Qualifiers: Encounter type: initial encounter Injury intent: accidental or unintentional Qualified Code(s): T45.511A - Poisoning by anticoagulants, accidental (unintentional), initial encounter Is this a current diagnosis for this admission?: Yes (3) Acute renal failure Qualifiers: Acute renal failure type: unspecified Qualified Code(s): N17.9 - Acute kidney failure, unspecified Is this a current diagnosis for this admission?: Yes (4) Dehydration Is this a current diagnosis for this admission?: Yes (5) Diarrhea Qualifiers: Diarrhea type: unspecified type Qualified Code(s): R19.7 - Diarrhea , unspecified Is this a current diagnosis for this admission?: Yes (6) Abnormal liver function test Is this a current diagnosis for this admission?: Yes (7) Fungal infection of skin of abdomen Is this a current diagnosis for this admission?: Yes (8) Type I diabetes mellitus Qualifiers: Diabetes mellitus complication status: with circulatory complication Diabetes mellitus complication detail: with other circulatory complications Qualified Code(s): E10.59 - Type 1 diabetes mellitus with other circulatory complications Is this a current diagnosis for this admission?: Yes (9) Chronic atrial fibrillation Is this a current diagnosis for this admission?: Yes (10) Hyperlipidemia Qualifiers: Hyperlipidemia type: unspecified Qualified Code(s): E78.5 - Hyperlipidemia, unspecified Is this a current diagnosis for this admission?: Yes (11) Essential hypertension Is this a current diagnosis for this admission?: Yes (12) Peptic ulcer disease Is this a current diagnosis for this admission?: Yes (13) Peripheral vascular disease Is this a current diagnosis for this admission?: Yes (14) Coronary artery disease Qualifiers: Coronary Disease-Associated Artery/Lesion type: [place] artery [place] vs. transplanted heart: [place] heart Associated angina: without angina Qualified Code(s): I25.10 - Atherosclerotic heart disease of [place] coronary artery without angina pectoris Is this a current diagnosis for this admission?: Yes (15) BPH (benign prostatic hyperplasia) Qualifiers: Prostatic enlargement morphology: unspecified morphology Lower urinary tract symptom presence: presence of symptoms unspecified Qualified Code(s ): N40.0 - Benign prostatic hyperplasia without lower urinary tract symptoms Is this a current diagnosis for this admission?: Yes (16) Anemia of chronic disease Is this a current diagnosis for this admission?: Yes (17) Stage II decubitus ulcer Qualifiers: Pressure ulcer location: buttock Laterality: left Qualified Code (s): L89.322 - Pressure ulcer of left buttock, stage 2 Is this a current diagnosis for this admission?: Yes - Time Time Spent with patient: 25-34 minutes - Plan Summary Plan Summary: Digoxin level is normal. We will continue to hold. Patient's already on amiodarone. No reported tachyarrhythmias. INR is not therapeutic. We will resume the patient's warfarin. Continue current antibiotics. Follow identity of the second organism on urine culture. Consult workforce planner for placement, or subacute rehabilitation. Family prefers patient be placed on long -term facility.
[2016-12-01 09:48] LABS: HEMATOCRIT 43.2 % (37.9-51.0); HEMOGLOBIN 14.3 g/dL (13.5-17.0); HGB HCT DIFFERENCE -0.3; MEAN CORPUSCULAR HGB CONC 33.1 g/dL (32.0-36.0); MEAN CORPUSCULAR VOLUME 94 fl (80-97); RED BLOOD COUNT 4.61 10^6/uL (4.35-5.55); RED CELL DISTRIBUTION WIDTH 16.3 % (11.5-14.0)
[2016-12-01] MEDS ORDERED: BISACODYL 10 MG SUPP.RECT PR ONE (09:50)
[2016-12-01] MEDS: LACTOBACILLUS ACIDOPHILUS 250 MG TAB PO SCH ×2 (10:37→18:03)
[2016-12-01] MEDS: AMIODARONE HCL 200 MG TABLET PO SCH (10:37)
[2016-12-01] MEDS: ASCORBIC ACID 500 MG TABLET PO SCH (10:37)
[2016-12-01] MEDS: ASPIRIN 81 MG TABLET, ENT COATED PO SCH (10:37)
[2016-12-01] MEDS: BACITRACIN ZINC OINTMENT 15 GM TP SCH ×2 (11:23→18:37)
[2016-12-01] MEDS: CLOTRIMAZOLE/BETAMETHASONE DIP CREAM 15 GM TOP SCH ×2 (11:23→18:37)
[2016-12-01] MEDS: NORMAL SALINE 1000 ML 1,000 ML IV PRN (13:19)
[2016-12-01] MEDS: POLYETHYLENE GLYCOL 3350 POWDER 17 GM/1 PACKET PO SCH (18:04)
[2016-12-01] MEDS: ERTAPENEM SODIUM 1 GM in NORMAL SALINE 50 ML IV SCH (18:06)
[2016-12-01] MEDS: WARFARIN SODIUM 1 MG TABLET PO SCH (22:29)
[2016-12-02] MEDS: LANSOPRAZOLE 30 MG TAB.RAP.DR PO SCH ×2 (05:04→17:48)
[2016-12-02] MEDS: GABAPENTIN 300 MG CAPSULE PO SCH ×3 (05:05→21:47)
[2016-12-02] MEDS: BUPROPION HCL 100 MG TABLET PO SCH ×3 (05:05→21:46)
[2016-12-02] MEDS: NORMAL SALINE 1000 ML 1,000 ML IV PRN (05:05)
[2016-12-02 06:59] LABS: PROTHROMBIN TIME 25.8 SEC (11.4-15.4)
[2016-12-02] MEDS: AMIODARONE HCL 200 MG TABLET PO SCH (10:53)
[2016-12-02] MEDS: LACTOBACILLUS ACIDOPHILUS 250 MG TAB PO SCH ×2 (10:53→17:48)
[2016-12-02] MEDS: BACITRACIN ZINC OINTMENT 15 GM TP SCH ×2 (10:53→17:48)
[2016-12-02] MEDS: CLOTRIMAZOLE/BETAMETHASONE DIP CREAM 15 GM TOP SCH ×2 (10:53→17:48)
[2016-12-02] MEDS: ASPIRIN 81 MG TABLET, ENT COATED PO SCH (10:53)
[2016-12-02] MEDS: ASCORBIC ACID 500 MG TABLET PO SCH (10:53)
[2016-12-02] MEDS: POLYETHYLENE GLYCOL 3350 POWDER 17 GM/1 PACKET PO SCH (17:48)
--- NOTE | 2016-12-02 18:43 | PDOC PROGRESS REPORT ---
Subjective Progress Note for:: 12/02/16 Subjective:: Denies any complaints today. Physical Exam Vital Signs: Temp Pulse Resp BP Pulse Ox 97.7 F 69 18 120/52 L 100 12/02/16 15:51 12/02/16 15:51 12/02/16 15:51 12/02/16 15:51 12/02/16 15:51 Intake & Output 12/01/16 12/02/16 12/03/16 06:59 06:59 06:59 Intake Total 3996 1340 1750 Output Total 1300 Balance 2696 1340 1750 Weight 108.2 kg 108.2 kg General appearance: PRESENT: no acute distress Eye exam: PRESENT: conjunctiva pink. ABSENT: scleral icterus Mouth exam: PRESENT: moist, tongue midline Neck exam: ABSENT: JVD Respiratory exam: PRESENT: clear to auscultation mayra. ABSENT: rales, rhonchi, wheezes Cardiovascular exam: PRESENT: RRR. ABSENT: diastolic murmur, rubs, systolic murmur Vascular exam: PRESENT: normal capillary refill GI/Abdominal exam: PRESENT: normal bowel sounds, soft. ABSENT: distended, guarding, mass, organolmegaly, rebound, tenderness Extremities exam: PRESENT: other - Status post left leg amputation. ABSENT: calf tenderness, clubbing, pedal edema Neurological exam: PRESENT: alert, awake, oriented to person, oriented to place , oriented to time, oriented to situation, CN II-XII grossly intact. ABSENT: motor sensory deficit Psychiatric exam: PRESENT: appropriate affect Results Laboratory Results: 12/01/16 05:34 12/01/16 05:34 12/01/16 18:20 Stool Occult Blood NEGATIVE 11/28/16 21:50 Clean Catch Midstream Urine Culture - Final Escherichia Coli Proteus Mirabilis Impressions: KUB X-Ray 11/28/16 00:00 IMPRESSION: Nonspecific bowel gas pattern with moderate stool in the ascending colon, transverse colon, and rectosigmoid. Chest X-Ray 11/28/16 14:25 IMPRESSION: No acute cardiopulmonary disease. Cardiac size is stable without significant pulmonary vascular distention. Assessment & Plan - Diagnosis (1) Digoxin toxicity Qualifiers: Encounter type: initial encounter Injury intent: accidental or unintentional Qualified Code(s): T46.0X1A - Poisoning by cardiac- stimulant glycosides and drugs of similar action, accidental (unintentional), initial encounter Is this a current diagnosis for this admission?: YesPlan: The patient is improving. (2) Coumadin toxicity Qualifiers: Encounter type: initial encounter Injury intent: accidental or unintentional Qualified Code(s): T45.511A - Poisoning by anticoagulants, accidental (unintentional), initial encounter Is this a current diagnosis for this admission?: YesPlan: The patient's INR was elevated when he presented. The Coumadin has been restarted and his INR is in the normal range. (3) Abnormal liver function test Is this a current diagnosis for this admission?: Yes (4) Acute renal failure Qualifiers: Acute renal failure type: unspecified Qualified Code(s): N17.9 - Acute kidney failure, unspecified Is this a current diagnosis for this admission?: YesPlan: Resolved (5) Anemia of chronic disease Is this a current diagnosis for this admission?: YesPlan: Stable (6) BPH (benign prostatic hyperplasia) Qualifiers: Prostatic enlargement morphology: unspecified morphology Lower urinary tract symptom presence: presence of symptoms unspecified Qualified Code(s ): N40.0 - Benign prostatic hyperplasia without lower urinary tract symptoms Is this a current diagnosis for this admission?: Yes (7) Chronic atrial fibrillation Is this a current diagnosis for this admission?: YesPlan: Patient is rate controlled on amiodarone. (8) Coronary artery disease Qualifiers: Coronary Disease-Associated Artery/Lesion type: [place] artery [place] vs. transplanted heart: [place] heart Associated angina: without angina Qualified Code(s): I25.10 - Atherosclerotic heart disease of [place] coronary artery without angina pectoris Is this a current diagnosis for this admission?: YesPlan: Denies any chest pain. (9) Dehydration Is this a current diagnosis for this admission?: YesPlan: Resolved. (10) Essential hypertension Is this a current diagnosis for this admission?: YesPlan: Blood pressure is under good control. (11) Hyperlipidemia Qualifiers: Hyperlipidemia type: unspecified Qualified Code(s): E78.5 - Hyperlipidemia, unspecified Is this a current diagnosis for this admission?: Yes (12) Peripheral vascular disease Is this a current diagnosis for this admission?: Yes (13) Stage II decubitus ulcer Qualifiers: Pressure ulcer location: buttock Laterality: left Qualified Code (s): L89.322 - Pressure ulcer of left buttock, stage 2 Is this a current diagnosis for this admission?: YesPlan: Continue local wound care. (14) Type I diabetes mellitus Qualifiers: Diabetes mellitus complication status: with circulatory complication Diabetes mellitus complication detail: with other circulatory complications Qualified Code(s): E10.59 - Type 1 diabetes mellitus with other circulatory complications Is this a current diagnosis for this admission?: YesPlan: Continue with sliding scale insulin. (15) Urinary tract infection Is this a current diagnosis for this admission?: YesPlan: Patient has been on ertapenem. The patient is growing Proteus and Escherichia coli. We'll switch to oral Cipro. - Time Time Spent with patient: 25-34 minutes - Inpatient Certification Medical Necessity: Need Close Monitoring Due to Risk of Patient Decompensation - Plan Summary Plan Summary: Patient continues to improve and should be stable for discharge to rehabilitation in the next 24-48 hours.
[2016-12-02] MEDS: WARFARIN SODIUM 1 MG TABLET PO SCH (21:46)
[2016-12-02] MEDS ORDERED: CIPROFLOXACIN HCL 500 MG TABLET PO SCH (22:00)
[2016-12-02] MEDS ORDERED: VANCOMYCIN HCL INJ 500 MG VIAL PO ONE (22:15)
[2016-12-02] MEDS: INSULIN REG, HUMAN 100 UNIT/ML 3 ML VIAL (PYX) SUBCUT PRN (22:31)
[2016-12-02] MEDS ORDERED: VANCOMYCIN HCL INJ 500 MG VIAL ONE (22:52)
[2016-12-03] MEDS: VANCOMYCIN HCL INJ 500 MG VIAL PO SCH ×4 (02:26→22:11)
[2016-12-03] MEDS: BUPROPION HCL 100 MG TABLET PO SCH ×3 (05:58→22:12)
[2016-12-03] MEDS: LANSOPRAZOLE 30 MG TAB.RAP.DR PO SCH ×2 (05:58→17:54)
[2016-12-03] MEDS: GABAPENTIN 300 MG CAPSULE PO SCH ×3 (05:58→22:12)
[2016-12-03 07:09] LABS: ABSOLUTE EOSINOPHILS # (AUTO) 0.2 10^3/uL (0.0-0.6); ABSOLUTE LYMPHOCYTES (AUTO) 1.6 10^3/uL (0.5-4.7); ABSOLUTE MONOCYTES (AUTO) 0.6 10^3/uL (0.1-1.4); BASOPHILS % (AUTO) 0.4 % (0-2); EOSINOPHILS % (AUTO) 2.3 % (0-6); HEMATOCRIT 39.3 % (37.9-51.0); HEMOGLOBIN 13.1 g/dL (13.5-17.0); MEAN CORPUSCULAR HEMOGLOBIN 31.2 pg (27.0-33.4); MEAN CORPUSCULAR HGB CONC 33.3 g/dL (32.0-36.0); MEAN CORPUSCULAR VOLUME 94 fl (80-97); MONOCYTES % (AUTO) 8.6 % (3-13); RED CELL DISTRIBUTION WIDTH 15.5 % (11.5-14.0); SEGMENTED NEUTROPHILS % (AUTO) 67.7 % (42-78); WHITE BLOOD COUNT 7.5 10^3/uL (4.0-10.5)
[2016-12-03 07:28] LABS: PROTHROMBIN TIME 24.8 SEC (11.4-15.4)
[2016-12-03 07:41] LABS: ANION GAP 10 (5-19); BLOOD UREA NITROGEN 16 mg/dL (7-20); CALCIUM 8.7 mg/dL (8.4-10.2); CARBON DIOXIDE 26 mmol/L (22-30); CHLORIDE 109 mmol/L (98-107); CREATININE RESULT 0.84 mg/dL (0.52-1.25); GLUCOSE 81 mg/dL (75-110); POTASSIUM 3.9 mmol/L (3.6-5.0); SODIUM 144.6 mmol/L (137-145)
[2016-12-03 10:12] LABS: APPEARANCE,URINE CLEAR; BILIRUBIN,URINE NEGATIVE (NEGATIVE); GLUCOSE, URINE NEGATIVE (NEGATIVE); KETONES,URINE NEGATIVE (NEGATIVE); LEUKOCYTE ESTERASE,URINE TRACE (NEGATIVE); NITRITE,URINE NEGATIVE (NEGATIVE); PROTEIN,URINE NEGATIVE (NEGATIVE); URINE SPECIFIC GRAVITY 1.006; UROBILINOGEN,URINE NEGATIVE mg/dL (<2.0)
[2016-12-03] MEDS: ASCORBIC ACID 500 MG TABLET PO SCH (10:21)
[2016-12-03] MEDS: BACITRACIN ZINC OINTMENT 15 GM TP SCH ×2 (10:22→17:54)
[2016-12-03] MEDS: LACTOBACILLUS ACIDOPHILUS 250 MG TAB PO SCH ×2 (10:22→17:53)
[2016-12-03] MEDS: AMIODARONE HCL 200 MG TABLET PO SCH (10:22)
[2016-12-03] MEDS: CLOTRIMAZOLE/BETAMETHASONE DIP CREAM 15 GM TOP SCH ×2 (10:22→17:54)
[2016-12-03] MEDS: ASPIRIN 81 MG TABLET, ENT COATED PO SCH (10:22)
--- NOTE | 2016-12-03 14:49 | PDOC PROGRESS REPORT ---
Subjective Progress Note for:: 12/03/16 Subjective:: He developed diarrhea last night and is positive for C. difficile. Physical Exam Vital Signs: Temp Pulse Resp BP Pulse Ox 97.8 F 69 18 110/50 L 100 12/03/16 11:57 12/03/16 11:57 12/03/16 11:57 12/03/16 11:57 12/03/16 11:57 Intake & Output 12/02/16 12/03/16 12/04/16 06:59 06:59 06:59 Intake Total 1340 3568 Balance 1340 3568 Weight 108.2 kg 110.9 kg General appearance: PRESENT: no acute distress Eye exam: PRESENT: conjunctiva pink. ABSENT: scleral icterus Mouth exam: PRESENT: moist, tongue midline Neck exam: ABSENT: JVD Respiratory exam: PRESENT: clear to auscultation mayra. ABSENT: rales, rhonchi, wheezes Cardiovascular exam: PRESENT: RRR. ABSENT: diastolic murmur, rubs, systolic murmur GI/Abdominal exam: PRESENT: normal bowel sounds, soft. ABSENT: distended, guarding, mass, organolmegaly, rebound, tenderness Extremities exam: PRESENT: other - Left leg amputation. ABSENT: calf tenderness , clubbing, pedal edema Neurological exam: PRESENT: alert, awake, oriented to person, oriented to place , oriented to time, oriented to situation, CN II-XII grossly intact. ABSENT: motor sensory deficit Psychiatric exam: PRESENT: appropriate affect Results Laboratory Results: 12/03/16 06:41 12/03/16 06:41 12/03/16 12/03/16 12/03/16 06:41 06:41 09:50 WBC 7.5 RBC 4.20 L Hgb 13.1 L Hct 39.3 MCV 94 MCH 31.2 MCHC 33.3 RDW 15.5 H Plt Count 128 L Seg Neutrophils % 67.7 Lymphocytes % 21.0 Monocytes % 8.6 Eosinophils % 2.3 Basophils % 0.4 Absolute Neutrophils 5.0 Absolute Lymphocytes 1.6 Absolute Monocytes 0.6 Absolute Eosinophils 0.2 Absolute Basophils 0.0 Sodium 144.6 Potassium 3.9 Chloride 109 H Carbon Dioxide 26 Anion Gap 10 BUN 16 Creatinine 0.84 Est GFR ( Amer) > 60 Est GFR (Non-Af Amer) > 60 Glucose 81 Calcium 8.7 Urine Color Urine Appearance Urine pH Ur Specific [place] Urine Protein Urine Glucose (UA) Urine Ketones Urine Blood Urine Nitrite Ur Leukocyte Esterase Urine WBC (Auto) Urine RBC (Auto) Stool Occult Blood NEGATIVE 12/03/16 09:50 WBC RBC Hgb Hct MCV MCH MCHC RDW Plt Count Seg Neutrophils % Lymphocytes % Monocytes % Eosinophils % Basophils % Absolute Neutrophils Absolute Lymphocytes Absolute Monocytes Absolute Eosinophils Absolute Basophils Sodium Potassium Chloride Carbon Dioxide Anion Gap BUN Creatinine Est GFR ( Amer) Est GFR (Non-Af Amer) Glucose Calcium Urine Color YELLOW Urine Appearance CLEAR Urine pH 6.0 Ur Specific [place] 1.006 Urine Protein NEGATIVE Urine Glucose (UA) NEGATIVE Urine Ketones NEGATIVE Urine Blood SMALL H Urine Nitrite NEGATIVE Ur Leukocyte Esterase TRACE H Urine WBC (Auto) 7 Urine RBC (Auto) 3 Stool Occult Blood Impressions: KUB X-Ray 11/28/16 00:00 IMPRESSION: Nonspecific bowel gas pattern with moderate stool in the ascending colon, transverse colon, and rectosigmoid. Chest X-Ray 11/28/16 14:25 IMPRESSION: No acute cardiopulmonary disease. Cardiac size is stable without significant pulmonary vascular distention. Assessment & Plan - Diagnosis (1) Digoxin toxicity Qualifiers: Encounter type: initial encounter Injury intent: accidental or unintentional Qualified Code(s): T46.0X1A - Poisoning by cardiac- stimulant glycosides and drugs of similar action, accidental (unintentional), initial encounter Is this a current diagnosis for this admission?: YesPlan: The patient is improving. (2) Coumadin toxicity Qualifiers: Encounter type: initial encounter Injury intent: accidental or unintentional Qualified Code(s): T45.511A - Poisoning by anticoagulants, accidental (unintentional), initial encounter Is this a current diagnosis for this admission?: YesPlan: The patient's INR was elevated when he presented. The Coumadin has been restarted and his INR is in the normal range. (3) Abnormal liver function test Is this a current diagnosis for this admission?: Yes (4) Acute renal failure Qualifiers: Acute renal failure type: unspecified Qualified Code(s): N17.9 - Acute kidney failure, unspecified Is this a current diagnosis for this admission?: YesPlan: Resolved (5) Anemia of chronic disease Is this a current diagnosis for this admission?: YesPlan: Stable (6) BPH (benign prostatic hyperplasia) Qualifiers: Prostatic enlargement morphology: unspecified morphology Lower urinary tract symptom presence: presence of symptoms unspecified Qualified Code(s ): N40.0 - Benign prostatic hyperplasia without lower urinary tract symptoms Is this a current diagnosis for this admission?: Yes (7) Chronic atrial fibrillation Is this a current diagnosis for this admission?: YesPlan: Patient is rate controlled on amiodarone. (8) Coronary artery disease Qualifiers: Coronary Disease-Associated Artery/Lesion type: lime artery [place] vs. transplanted heart: lime heart Associated angina: without angina Qualified Code(s): I25.10 - Atherosclerotic heart disease of lime coronary artery without angina pectoris Is this a current diagnosis for this admission?: YesPlan: Denies any chest pain. (9) Dehydration Is this a current diagnosis for this admission?: YesPlan: Resolved. (10) Essential hypertension Is this a current diagnosis for this admission?: YesPlan: Blood pressure is under good control. (11) Hyperlipidemia Qualifiers: Hyperlipidemia type: unspecified Qualified Code(s): E78.5 - Hyperlipidemia, unspecified Is this a current diagnosis for this admission?: Yes (12) Peripheral vascular disease Is this a current diagnosis for this admission?: Yes (13) Stage II decubitus ulcer Qualifiers: Pressure ulcer location: buttock Laterality: left Qualified Code (s): L89.322 - Pressure ulcer of left buttock, stage 2 Is this a current diagnosis for this admission?: YesPlan: Continue local wound care. (14) Type I diabetes mellitus Qualifiers: Diabetes mellitus complication status: with circulatory complication Diabetes mellitus complication detail: with other circulatory complications Qualified Code(s): E10.59 - Type 1 diabetes mellitus with other circulatory complications Is this a current diagnosis for this admission?: YesPlan: Continue with sliding scale insulin. (15) Urinary tract infection Is this a current diagnosis for this admission?: YesPlan: Patient has been on oral Cipro. (16) C. difficile diarrhea Is this a current diagnosis for this admission?: YesPlan: Patient was started on oral vancomycin. - Time Time Spent with patient: 25-34 minutes - Inpatient Certification Medical Necessity: Need Close Monitoring Due to Risk of Patient Decompensation, Need For IV Fluids - Plan Summary Plan Summary: Patient will be discharged to [facility] tomorrow.
[2016-12-03] MEDS: POLYETHYLENE GLYCOL 3350 POWDER 17 GM/1 PACKET PO SCH (17:55)
[2016-12-03] MEDS: WARFARIN SODIUM 1 MG TABLET PO SCH (22:12)
[2016-12-04] MEDS: GABAPENTIN 300 MG CAPSULE PO SCH (05:14)
[2016-12-04] MEDS: VANCOMYCIN HCL INJ 500 MG VIAL PO SCH ×2 (05:14→09:08)
[2016-12-04] MEDS: BUPROPION HCL 100 MG TABLET PO SCH (05:15)
[2016-12-04] MEDS: LANSOPRAZOLE 30 MG TAB.RAP.DR PO SCH (05:15)
[2016-12-04] MEDS: NORMAL SALINE 1000 ML 1,000 ML IV PRN (05:20)
[2016-12-04 05:27] LABS: PROTHROMBIN TIME 23.5 SEC (11.4-15.4)
[2016-12-04] MEDS: INSULIN REG, HUMAN 100 UNIT/ML 3 ML VIAL (PYX) SUBCUT PRN ×2 (09:08→11:34)
[2016-12-04] MEDS: ASPIRIN 81 MG TABLET, ENT COATED PO SCH (09:59)
[2016-12-04] MEDS: LACTOBACILLUS ACIDOPHILUS 250 MG TAB PO SCH (09:59)
[2016-12-04] MEDS: AMIODARONE HCL 200 MG TABLET PO SCH (09:59)
[2016-12-04] MEDS: ASCORBIC ACID 500 MG TABLET PO SCH (09:59)
[2016-12-04] MEDS: CLOTRIMAZOLE/BETAMETHASONE DIP CREAM 15 GM TOP SCH (10:00)
[2016-12-04] MEDS: BACITRACIN ZINC OINTMENT 15 GM TP SCH (10:00)
--- NOTE | 2016-12-04 10:33 | PDOC TRANSFER SUMMARY ---
General - Admit/Disc Date/PCP Admission Date/Primary Care Provider: 11/28/16 16:19 MARION HAAS MD Discharge Date: 12/04/16 - Discharge Diagnosis (1) Digoxin toxicity Is this a current diagnosis for this admission?: Yes (2) Coumadin toxicity Is this a current diagnosis for this admission?: Yes (3) Abnormal liver function test Is this a current diagnosis for this admission?: Yes (4) Acute renal failure Is this a current diagnosis for this admission?: Yes (5) Anemia of chronic disease Is this a current diagnosis for this admission?: Yes (6) BPH (benign prostatic hyperplasia) Is this a current diagnosis for this admission?: Yes (7) Chronic atrial fibrillation Is this a current diagnosis for this admission?: Yes (8) Coronary artery disease Is this a current diagnosis for this admission?: Yes (9) Dehydration Is this a current diagnosis for this admission?: Yes (10) Essential hypertension Is this a current diagnosis for this admission?: Yes (11) Hyperlipidemia Is this a current diagnosis for this admission?: Yes (12) Peripheral vascular disease Is this a current diagnosis for this admission?: Yes (13) Stage II decubitus ulcer Is this a current diagnosis for this admission?: Yes (14) Type I diabetes mellitus Is this a current diagnosis for this admission?: Yes (15) Urinary tract infection Is this a current diagnosis for this admission?: YesSummary: With Escherichia coli and Proteus. Status post completion of antibiotic therapy with Cipro. (16) C. difficile diarrhea Is this a current diagnosis for this admission?: YesSummary: Started on oral vancomycin and will complete a 10 day course of this. - Additional Information Discharge Diet: Cardiac, Diabetic Discharge Activity: Activity As Tolerated Home Medications: Amiodarone HCl [Cordarone 200 mg Tablet] 200 mg PO DAILY 11/28/16 Ascorbate Calcium [Vitamin C] 500 mg PO DAILY 11/28/16 Aspirin [Adult Low Dose Aspirin EC] 81 mg PO DAILY 11/28/16 Atorvastatin Calcium [Lipitor 40 mg Tablet] 40 mg PO QHS 11/28/16 Bupropion HCl [Wellbutrin Xl 300mg 24hr Tablet] 300 mg PO DAILY 11/28/16 Cetirizine HCl [Zyrtec 10 mg Tablet] 1 tab PO QHS 11/28/16 Ferrous Sulfate [Feosol 325 mg Tablet] 325 mg PO BID 11/28/16 Gabapentin [Neurontin 300 mg Capsule] 300 mg PO Q8 11/28/16 Insulin Detemir [Levemir Flextouch] 10 unit SQ QHS 11/28/16 Insulin Lispro [Humalog Insulin (Lispro) 100 unit/mL] 4 unit SUBCUT MEALS Metoprolol Succinate [Toprol XL 200 mg Tablet] 300 mg PO DAILY 11/28/16 Multivitamin [Daily Multiple Vitamin] 1 each PO DAILY 11/28/16 Sertraline HCl [Zoloft] 25 mg PO DAILY 11/28/16 Spironolactone [Aldactone 25 mg Tablet] 25 mg PO DAILY 11/28/16 Torsemide [Demadex 20 mg Tablet] 20 mg PO DAILY 11/28/16 Warfarin Sodium [Coumadin 1 mg Tablet] 1 mg PO DAILY@1700 11/28/16 Acetaminophen [Tylenol 325 mg Tablet] 650 mg PO Q4HP PRN tablet 12/04/16 Bacitracin Zinc [Bacitracin Oint 15 gm] 1 applic TP BID tube 12/04/16 Insulin Regular, Human [Humulin R (Reg) Insulin 100 unit/mL] 0 - 12 unit SUBCUT ACHSP PRN unit 12/04/16 Vancomycin HCl 500 mg PO Q6 10 Days 12/04/16 History of Present Illness Admission Date/PCP: 11/28/16 16:19 MARION HAAS MD History of Present Illness: HOANG HUMPHREYS is a 76 year old male, with multiple medical problems including diabetes, atrial fibrillation, coronary artery disease, hypertension, peripheral vascular disease, brought to the emergency room because of confusion and decreased oral intake for the past 2 weeks. The patient underwent amputation of the lower extremity on September of this year. Went to rehabilitation for about a month without significant improvement therefore was discharged home with physical therapy. The patient was discharged from physical therapy as there is no progress as well in terms of ambulation. Patient reportedly on 24-hour care according to the family. His lives with his son. He is unable to get out of bed and transfer to the wheelchair. He has a decubitus ulcer on his buttocks that reportedly started to increase in size. For the past 2 weeks his appetite has dropped. He started to become confused as well. Patient just recently completed antibiotic therapy for a urinary tract infection with cephalexin. He started to develop diarrhea about a week ago but not in large volume. He had prior constipation according to the family. He has not however complain of any problems specifically. Imodium was given to the patient, which will only relieved the symptom partially but the diarrhea persisted. He started to develop some nausea with episode of vomiting. He was brought to the hospital for evaluation, in the emergency room he was found to have an elevated digoxin level, as well as creatinine, and PT/ INR. Patient was given Digibind, and was referred for admission. EKG shows intraventricular conduction defect but patient has a permanent pacemaker. No other information available at this time. Information about unobtainable from the patient as he is a very poor historian. Hospital Course Hospital Course: 76-year-old gentleman who presented with decreased by mouth intake was found to have digoxin toxicity as well as acute renal failure secondary to dehydration. Patient was given IV fluids and his digitoxin was initially held. His digoxin toxicity resolved and his acute renal failure improved with IV fluids. Patient also was noted have a urinary tract infection initially was treated with IV antibiotics. He was switched over to Cipro once it was known that he had Escherichia coli and Proteus growing. The patient has completed a course of antibiotics for the urinary tract infection. Unfortunately patient developed diarrhea 2 days prior to discharge and was positive for C. difficile. Patient was started on oral vancomycin has had almost complete resolution of his diarrhea. He will need a total of 10 days of oral vancomycin. The patient has stage II decubitus which treated with local wound care. The patient also has had a left [id number] amputation in September of this year and is weak and will need to go to rehabilitation for strengthening so he can do transfers. His other medical problems were stable during this hospitalization. Physical Exam Vital Signs: Temp Pulse Resp BP Pulse Ox 97.3 F 69 12 147/72 H 100 12/04/16 08:00 12/04/16 08:00 12/04/16 08:00 12/04/16 08:00 12/04/16 08:00 Intake & Output 12/03/16 12/04/16 12/05/16 06:59 06:59 06:59 Intake Total 3568 4301 Output Total 600 Balance 3568 3701 Weight 110.9 kg 110.2 kg Results Laboratory Results: 12/03/16 06:41 12/03/16 06:41 12/02/16 20:40 Stool - Stool - Final 12/02/16 20:40 Stool - Stool Stool Culture - Final NO SALMONELLA, SHIGELLA, CAMPYLOBACTER, OR E.COLI 0157 RECOVERED. NEGATIVE FOR SHIGA TOXINS 1&2. Impressions: KUB X-Ray 11/28/16 00:00 IMPRESSION: Nonspecific bowel gas pattern with moderate stool in the ascending colon, transverse colon, and rectosigmoid. Chest X-Ray 11/28/16 14:25 IMPRESSION: No acute cardiopulmonary disease. Cardiac size is stable without significant pulmonary vascular distention. Transfer Plan - Disposition Transfer Plan: Patient is transferred to [facility] for rehabilitation and physical therapy. Will also need local wound care to his sacral decubitus. - Time Spent with Patient Time spent with patient: Greater than 30 Minutes Qualifiers PATEINT BEING DISCHARGED WITH ANY OF THE FOLLOWING DIAGNOSIS?: No Plan Discharge Plan: Patient is discharged to [facility]. Time Spent: Greater than 30 Minutes
[2016-12-04 11:56] VITALS: BP 129/87
== END 2016-12-04 13:42 | DRG 683 ==
LOC: ER 12:35 → EH 16:11 → UNDOADMOB 16:19 → EH 16:19 → INTOOBSV 16:19 → OBSVTOIN 16:19 → 5 18:28
DX: N17.9 Acute kidney failure, unspecified (principal); A04.7 Enterocolitis due to Clostridium difficile; N39.0 Urinary tract infection, site not specified; B96.20 Unspecified Escherichia coli [E. coli] as the cause of diseases classified elsewhere; B96.4 Proteus (mirabilis) (morganii) as the cause of diseases classified elsewhere; E86.0 Dehydration; T46.0X5A Adverse effect of cardiac-stimulant glycosides and drugs of similar action, initial encounter; T45.515A Adverse effect of anticoagulants, initial encounter; Y92.9 Unspecified place or not applicable; B36.9 Superficial mycosis, unspecified; L89.322 Pressure ulcer of left buttock, stage 2; I48.2 Chronic atrial fibrillation; K27.9 Peptic ulcer, site unspecified, unspecified as acute or chronic, without hemorrhage or perforation; E10.9 Type 1 diabetes mellitus without complications; E78.5 Hyperlipidemia, unspecified; I25.10 Atherosclerotic heart disease of native coronary artery without angina pectoris; I73.9 Peripheral vascular disease, unspecified; N40.0 Benign prostatic hyperplasia without lower urinary tract symptoms; Z79.899 Other long term (current) drug therapy; Z79.82 Long term (current) use of aspirin; Z79.4 Long term (current) use of insulin; Z79.01 Long term (current) use of anticoagulants; Z95.0 Presence of cardiac pacemaker; Z89.612 Acquired absence of left leg above knee; Z88.8 Allergy status to other drugs, medicaments and biological substances; Z87.891 Personal history of nicotine dependence
CPT/HCPCS: 36415; 71010; 74000; 80048; 80053; 80162; 81001; 82272; 82962; 83605; 83735; 84439; 84443; 85025; 85027; 85610; 87040; 87045; 87086; 87088; 87186; 87205; 87493; 93005; 93010; 96374; 99285; J1162; J1335; J1815; J3370; J3430; J3490; J7030

== ENCOUNTER 2017-09-24 18:56 | Emergency (ER) | payer BC, MEDICARE ==
--- NOTE | 2017-09-24 19:20 | ER Document Report ---
ED General - General Stated Complaint: FLANK PAIN Time Seen by Provider: 09/24/17 19:07 Notes: Patient is a 77 year old male that comes emergency department by EMS for chief complaint of pain in the right flank and pain with inspiration/deep breaths, symptoms of been worsening for about 3 days now. Patient has a left AKA, uses a motorized wheelchair, states that he fell off his bed and landed on his right side/lower back about 3 days ago. He denies head injury, headache. No cough, no vomiting, no chest pain, no fever or chills. Patient states he is eating and drinking, urinating and defecating normally. He is on Xarelto blood thinner , has a history of atrial fibrillation, AICD, hypertension, diabetes. He comes from home. TRAVEL OUTSIDE OF THE [place] IN LAST 30 DAYS: No - Related Data Allergies/Adverse Reactions: iodine [Iodine] Adverse Reaction (Verified 11/28/16 12:43) NAUSEA, VOMITING terazosin HCl [From Hytrin] Adverse Reaction (Verified 11/28/16 12:43) HEART ISSUES (A-FIB) Past Medical History - General Information source: Patient, Relative - Son - Social History Smoking Status: Never Smoker Drug Abuse: None Lives with: Family Family History: DM, Hypertension - Past Medical History Cardiac Medical History: Reports: Hx Atrial Fibrillation, Hx Coronary Artery Disease, Hx Hypercholesterolemia, Hx Hypertension, Hx Peripheral Vascular Disease Denies: Hx Heart Attack Pulmonary Medical History: Denies: Hx Asthma Neurological Medical History: Denies: Hx Cerebrovascular Accident, Hx Seizures Endocrine Medical History: Reports: Hx Diabetes Mellitus Type 2 Renal/ Medical History: Denies: Hx Peritoneal Dialysis GI Medical History: Reports: Hx Ulcer - STOMACH D/T MED. Denies: Hx Hepatitis, Hx Hiatal Hernia Infectious Medical History: Denies: Hx Hepatitis Past Surgical History: Reports: Hx Bowel Surgery, Hx Orthopedic Surgery - Hx AKA left, Hx Pacemaker - CHECKLIST INITIATED, PACEMAKER CHANGED MAR 2011. Denies: Hx Open Heart Surgery Review of Systems - Review of Systems Constitutional: See HPI EENT: No symptoms reported Cardiovascular: No symptoms reported Respiratory: See HPI Gastrointestinal: No symptoms reported Genitourinary: No symptoms reported Male Genitourinary: No symptoms reported Musculoskeletal: See HPI Skin: No symptoms reported Hematologic/Lymphatic: No symptoms reported Neurological/Psychological: See HPI Physical Exam - Vital signs Vitals: Resp Pulse Ox 14 96 09/24/17 19:28 09/24/17 19:28 Interpretation: Normal - General General appearance: Appears well, Alert In distress: None - HEENT Head: Normocephalic, Atraumatic Eyes: Normal Pupils: PERRL - Respiratory Respiratory status: No respiratory distress Chest status: Nontender Breath sounds: Normal. No: Decreased air movement, Wheezing Chest palpation: Normal - Cardiovascular Rhythm: Regular Heart sounds: Normal auscultation Murmur: No - Abdominal Inspection: Normal Distension: No distension Bowel sounds: Normal Tenderness: Nontender. No: Tender, Guarding - Back Back: Tender - Tender to palpation of the general right lower back, no midline tenderness, no severe tenderness, no saddle anesthesia, normal distal neurovascular exam - Extremities General lower extremity: Nontender - Some chronic discoloration of the right leg , normal pulse, no tenderness, some scabs, no abnormal heat or erythema noted. Normal range of motion of the knee, ankle, normal lower extremity exam otherwise , Other - Left above-knee amputation. Mild tenderness over the right proximal and posterior femoral/hip areas, no signs of trauma - Neurological Neuro grossly intact: Yes Cognition: Normal Orientation: AAOx4 [place] Coma Scale Eye Opening: Spontaneous [place] Coma Scale Verbal: Oriented [place] Coma Scale Motor: Obeys Commands [place] Coma Scale Total: 15 Speech: Normal Motor strength normal: LUE, RUE, LLE, RLE Sensory: Normal - Psychological Associated symptoms: Normal affect, Normal mood - Skin Skin Temperature: Warm Skin Moisture: Dry Skin Color: Normal Course - Re-evaluation Re-evalutation: Patient well-appearing, cooperative, alert, vital signs unremarkable, soft abdomen, clear lungs, mild soreness along the general right lower back with no signs of distress, no neurological deficits, no vomiting, no hypotension, mild discomfort with palpation. Imaging unremarkable. CBC, chemistry, cardiac enzymes at baseline. EKG showing no significant change from prior. Urinalysis showing urinary tract infection. Son came to bedside, discussed with him, he states he does not think patient hit his head, however he thinks he might, as result because patient is on Xarelto patient's head was scanned, CAT scan of the head is normal. Discussed with son and patient afterwards. Patient will be placed on antibiotics, patient and son expressed concerns about her current living situation, we feel patient needs to be in a long-term care facility, they state that they have not made any headway with his primary care regarding this and are asking for advice. retail banking manager consult was placed to help move this along. Discussed return precautions. Patient and son state understanding and agreement. - Vital Signs Vital signs: Temp Pulse Resp BP Pulse Ox 97.9 F 10 L 127/73 H 98 09/25/17 00:02 09/25/17 00:02 09/25/17 00:02 09/25/17 00:02 - Laboratory Result Diagrams: 09/24/17 20:20 09/24/17 20:20 Laboratory results interpreted by me: 09/24/17 09/24/17 09/24/17 20:20 20:20 21:28 RBC 4.10 L Hgb 12.8 L RDW 16.2 H Plt Count 140 L Chloride 108 H Glucose 182 H Direct Bilirubin 0.5 H Alkaline Phosphatase 147 H Creatine Kinase 40 L Albumin 2.7 L Urine Blood MODERATE H Ur Leukocyte Esterase SMALL H Urine Ascorbic Acid 40 H Discharge - Discharge Clinical Impression: Flank pain, Side pain Fall Qualifiers: Encounter type: initial encounter Qualified Code(s): W19.XXXA - Unspecified fall, initial encounter Condition: Stable Disposition: HOME, SELF-CARE Additional Instructions: Imaging and workup does not show any other maladies except a developing urinary tract infection. Infection probably is not causing your symptoms but we will treat this to avoid worsening symptoms. Take Tylenol for pain. Take cephalexin antibiotic as prescribed to completion. We have a disability case manager consult placed, they will be following up closely with you to help you arrange a better situation at home. Return for any concerning symptoms including fever, vomiting, difficulty breathing, or if something is not right. Prescriptions: Cephalexin Monohydrate [Keflex 500 mg Capsule] 500 mg PO BID 7 Days #14 capsule
--- NOTE | 2017-09-24 20:03 | RADIOLOGY REPORT (SQ) ---
EXAM DESCRIPTION: CHEST SINGLE VIEW COMPLETED DATE/TIME: 09/24/2017 7:47 pm REASON FOR STUDY: fall, pain in right flank, short of breath COMPARISON: 11/28/2016 NUMBER OF VIEWS: One view. TECHNIQUE: Single frontal radiographic view of the chest acquired. LIMITATIONS: None. FINDINGS: LUNGS AND PLEURA: Mild Peribronchial cuffing and interstitial changes. Mild subsegmental a telectasis in the right lung base. No dense consolidation, pneumothorax or significant effusion. MEDIASTINUM AND HILAR STRUCTURES: Stable. HEART AND VASCULAR STRUCTURES: Stable. BONES: No acute findings. HARDWARE: Dual lead cardiac pacer. OTHER: No other significant finding. IMPRESSION: Mild Peribronchial cuffing and interstitial changes.. Mild subsegmental atelectasis in the right lung base.No dense consolidation, pneumothorax or significant effusion. TECHNICAL DOCUMENTATION: JOB ID: [id number] [id number] 2010 [employer]- All Rights Reserved
--- NOTE | 2017-09-24 20:05 | RADIOLOGY REPORT (SQ) ---
EXAM DESCRIPTION: HIP RIGHT AP/LATERAL COMPLETED DATE/TIME: 09/24/2017 7:47 pm REASON FOR STUDY: fall, pain COMPARISON: None. NUMBER OF VIEWS: Two views. TECHNIQUE: AP pelvis and additional frog-leg view of the right hip. LIMITATIONS: None. FINDINGS: MINERALIZATION: Normal. RIGHT HIP: No fracture or dislocation. No worrisome bone lesions. LEFT HIP: No fracture or dislocation. No worrisome bone lesions. PUBIS AND ISCHIUM: No fracture. PELVIS: No fracture. SACRUM: No fracture or dislocation. No worrisome bone lesions. LOWER LUMBAR SPINE: No fracture or dislocation. No worrisome bone lesions. No significant disc disea se. SOFT TISSUES: No findings. OTHER: No other significant finding. IMPRESSION: No fracture. TECHNICAL DOCUMENTATION: JOB ID: [id number] 2010 [employer]- All Rights Reserved
[2017-09-24 20:33] LABS: ABSOLUTE EOSINOPHILS # (AUTO) 0.2 10^3/uL (0.0-0.6); ABSOLUTE LYMPHOCYTES (AUTO) 1.1 10^3/uL (0.5-4.7); ABSOLUTE MONOCYTES (AUTO) 0.6 10^3/uL (0.1-1.4); BASOPHILS % (AUTO) 0.3 % (0-2); EOSINOPHILS % (AUTO) 3.2 % (0-6); HEMATOCRIT 38.5 % (37.9-51.0); HEMOGLOBIN 12.8 g/dL (13.5-17.0); LYMPHOCYTES % (AUTO) 18.3 % (13-45); MEAN CORPUSCULAR HEMOGLOBIN 31.4 pg (27.0-33.4); MEAN CORPUSCULAR HGB CONC 33.4 g/dL (32.0-36.0); MEAN CORPUSCULAR VOLUME 94 fl (80-97); MONOCYTES % (AUTO) 10.2 % (3-13); PLATELET COUNT 140 10^3/uL (150-450); RED CELL DISTRIBUTION WIDTH 16.2 % (11.5-14.0); TOTAL CELLS COUNTED % (AUTO) 100 %; WHITE BLOOD COUNT 5.8 10^3/uL (4.0-10.5)
[2017-09-24 20:56] LABS: ALANINE AMINOTRANSFERASE 29 U/L (21-72); ALBUMIN 2.7 g/dL (3.5-5.0); ALKALINE PHOSPHATASE 147 U/L (38-126); ANION GAP 6 (5-19); ASPARTATE AMINO TRANSFERASE 59 U/L (17-59); BILIRUBIN,DIRECT 0.5 mg/dL (0.0-0.4); BILIRUBIN,TOTAL 0.6 mg/dL (0.2-1.3); BLOOD UREA NITROGEN 13 mg/dL (7-20); CALCIUM 8.8 mg/dL (8.4-10.2); CARBON DIOXIDE 27 mmol/L (22-30); CHLORIDE 108 mmol/L (98-107); CREATINE KINASE 40 U/L (55-170); GLUCOSE 182 mg/dL (75-110); POTASSIUM 4.6 mmol/L (3.6-5.0); SODIUM 141.2 mmol/L (137-145); TOTAL PROTEIN 6.8 g/dL (6.3-8.2)
--- NOTE | 2017-09-24 22:19 | RADIOLOGY REPORT (SQ) ---
EXAM DESCRIPTION: CT HEAD WITHOUT COMPLETED DATE/TIME: 09/24/2017 9:59 pm REASON FOR STUDY: fall, on blood thinner COMPARISON: 08/04/2008 TECHNIQUE: Axial images acquired through the brain without intravenous contrast. Images reviewed wi th bone, brain and subdural windows. Images stored on PACS. All CT scanners at this facility use dose modulation, iterative reconstruction, and/or weight based d osing when appropriate to reduce radiation dose to as low as reasonably achievable (ALARA). [facility]: Dose Right [facility]: CareDose [facility]: Dose Right [facility]: Teradose 4D [facility]: Smart Cerevo RADIATION DOSE: CT Rad equipment meets quality standard of care and radiation dose reduction techniq ues were employed. CTDIvol: 64.6 mGy. DLP: 1163 mGy-cm. mGy. LIMITATIONS: None. FINDINGS: VENTRICLES: Prominent. CEREBRUM: No masses. No hemorrhage. No midline shift. Areas of low density in the white matter mos t likely due to chronic micro-vascular ischemic change. No evidence for acute infarction. CEREBELLUM: No masses. No hemorrhage. No alteration of density. No evidence for acute infarction. EXTRAAXIAL SPACES: Mild age-related involutional change. No fluid collections. No masses. ORBITS AND GLOBE: No intra- or extraconal masses. Normal contour of globe without masses. CALVARIUM: No fracture. PARANASAL SINUSES: No fluid or mucosal thickening. SOFT TISSUES: No mass or hematoma. OTHER: No other significant finding. IMPRESSION: MILD CHRONIC CHANGES OF ATROPHY AND MICROVASCULAR ISCHEMIA. NO ACUTE PROCESS. EVIDENCE OF ACUTE STROKE: NO. TECHNICAL DOCUMENTATION: JOB ID: [id number] [place]-[id number] Quality ID # [id number]: Final reports with documentation of one or more dose reduction techniques (e.g., Au tomated exposure control, adjustment of the mA and/or kV according to patient size, use of iterative reconstruction technique) 2010 [employer]- All Rights Reserved
[2017-09-24 22:34] LABS: APPEARANCE,URINE SLIGHTLY-CLOUDY; BILIRUBIN,URINE NEGATIVE (NEGATIVE); COLOR,URINE YELLOW; GLUCOSE, URINE NEGATIVE (NEGATIVE); KETONES,URINE NEGATIVE (NEGATIVE); LEUKOCYTE ESTERASE,URINE SMALL (NEGATIVE); NITRITE,URINE NEGATIVE (NEGATIVE); PROTEIN,URINE NEGATIVE (NEGATIVE); URINE SPECIFIC GRAVITY 1.006; UROBILINOGEN,URINE NEGATIVE mg/dL (<2.0)
[2017-09-24] MEDS ORDERED: CEPHALEXIN 500 MG CAPSULE PO ONE (22:43)
[2017-09-25 00:07] VITALS: BP 127/73
--- NOTE | 2017-09-25 11:06 | EKG REPORT ---
SEVERITY:- ABNORMAL ECG - ATRIAL-VENTRICULAR DUAL-PACED RHYTHM : Confirmed by: Jung Obregon 25-Sep-2017 11:05:50
== END 2017-09-25 00:07 | disposition home or self-care (01) ==
LOC: ER 18:56
DX: R10.9 Unspecified abdominal pain (principal); R07.1 Chest pain on breathing; W06.XXXA Fall from bed, initial encounter; N39.0 Urinary tract infection, site not specified; R23.4 Changes in skin texture; E11.51 Type 2 diabetes mellitus with diabetic peripheral angiopathy without gangrene; I25.10 Atherosclerotic heart disease of native coronary artery without angina pectoris; I10 Essential (primary) hypertension; I48.91 Unspecified atrial fibrillation; Z79.01 Long term (current) use of anticoagulants; Z95.810 Presence of automatic (implantable) cardiac defibrillator; Z89.612 Acquired absence of left leg above knee; Z87.11 Personal history of peptic ulcer disease
CPT/HCPCS: 36415; 70450; 71045; 80053; 81001; 82550; 84484; 85025; 87086; 87088; 87186; 93005; 93010; 99285